=== PATIENT | female | born 1985 | race Hispanic/Latino ===

== ENCOUNTER 2017-10-07 09:57 | Emergency (ER) | payer BC, SELFPAY ==
[2017-10-07] MEDS ORDERED: NA CHLORIDE 0.9% 2,000 ML ONE (12:09)
[2017-10-07 12:24] LABS: Urine Bacteria >50 /HPF (<20)
[2017-10-07 12:25] LABS: Urine Culture Reflex Order NOT NEEDED; Urine Mucus 4+ /HPF (NONE SEEN)
[2017-10-07 12:27] LABS: Urine Blood TRACE (NEG); Urine Glucose NEGATIVE (NEG); Urine Protein NEGATIVE (NEG); Urine Specific Gravity 1.025 (1.005-1.030); Urine pH 5.5 (5.0-7.0)
[2017-10-07 12:36] LABS: Absolute Monocytes 0.4 K/uL (0.1-1.3); Absolute Neutrophil 4.1 K/uL (1.8-8.0); Basophils % 0.4 % (0-1.3); Lymphocytes % 17.7 % (15.3-44.8); MCH 30.7 pg (27.0-35.0); MCV 90.4 fL (80-100); MPV 9.3 fL (7.6-11.3); Monocytes % 7.2 % (3.3-12.3)
[2017-10-07] MEDS ORDERED: ONDANSETRON 4 MG/2 ML VIAL ONE (12:45)
[2017-10-07 12:47] LABS: Glucose Level 86 mg/dL (65-120); Lipase 17 U/L (22-51)
[2017-10-07 12:53] LABS: Albumin 4.3 g/dL (3.2-5.5); Alkaline Phosphatase 60 IU/L (42-121); BUN Blood Urea Nitrogen 14 mg/dL (6-20); Bilirubin Direct 0.2 mg/dL (0-0.2); Bilirubin Total 0.8 mg/dL (0.3-1.2); Protein, Total 7.4 g/dL (6.0-8.3)
[2017-10-07 12:55] LABS: ALT/SGPT 17 IU/L (10-60); AST/SGOT 22 IU/L (10-42); Bicarbonate 26 mEq/L (21-31); Sodium Level 134 mEq/L (135-145)
[2017-10-07] MEDS ORDERED: CEFTRIAXONE/SWI 1gm 1 GM/10 ML SYR ONE (13:03)
--- NOTE | 2017-10-07 14:05 | EDPHYS ---
Physician Documentation [facility] Name: Cecilia Metcalf Age: 32 yrs Sex: Female : 1985 Arrival Date: 10/07/2017 Time: 10:02 Bed 20 Private MD: ED Physician Jim Krishnamurthy HPI: 10/07 12:03 This 32 yrs old Female presents to ER via Ambulatory with complaints of snw Nausea/Vomiting/Diarrhea. 12:03 Onset: The symptoms/episode began/occurred suddenly, 5 day(s) ago, and became worse and snw became persistent. Possible causes: antibiotics. Associated signs and symptoms: Pertinent positives: anorexia, nausea, low grade fever x 2 days. Severity of symptoms: At their worst the symptoms were moderate severe. The patient has not experienced similar symptoms in the past. The patient has not recently seen a physician, the patient's primary care provider is Dr. Dr. Adams. SKIN TANNER: 10:15 LMP N/A - control method hj Historical: - Allergies: 10:15 No Known Allergies; hj - Home Meds: 10:15 None [Active]; hj - PMHx: 10:15 None; hj - PSHx: 10:15 ; hj - Immunization history:: Adult Immunizations up to date. - Social history:: Smoking status: Patient/guardian denies using tobacco. ROS: 12:03 Constitutional: Negative for fever, chills, and weight loss, Eyes: Negative for injury, snw pain, redness, and discharge, ENT: Negative for injury, pain, and discharge, Neck: Negative for injury, pain, and swelling, Cardiovascular: Negative for chest pain, palpitations, and edema, Respiratory: Negative for shortness of breath, cough, wheezing, and pleuritic chest pain, Back: Negative for injury and pain, : Negative for injury, bleeding, discharge, and swelling, MS/Extremity: Negative for injury and deformity, Skin: Negative for injury, rash, and discoloration, Neuro: Negative for headache, weakness, numbness, tingling, and seizure. 12:03 Abdomen/GI: Positive for abdominal pain, nausea, vomiting, and diarrhea. Exam: 12:03 Constitutional: This is a well developed, well nourished patient who is awake, alert, snw and in no acute distress. Head/Face: Normocephalic, atraumatic. Eyes: Pupils equal round and reactive to light, extra-ocular motions intact. Lids and lashes normal. Conjunctiva and sclera are non-icteric and not injected. Cornea within normal limits. Periorbital areas with no swelling, redness, or edema. ENT: Nares patent. No nasal discharge, no septal abnormalities noted. Tympanic membranes are normal and external auditory canals are clear. Oropharynx with no redness, swelling, or masses, exudates, or evidence of obstruction, uvula midline. Mucous membranes moist. Neck: Trachea midline, no thyromegaly or masses palpated, and no cervical lymphadenopathy. Supple, full range of motion without nuchal rigidity, or vertebral point tenderness. No Meningismus. Chest/axilla: Normal chest wall appearance and motion. Nontender with no deformity. No lesions are appreciated. Cardiovascular: Regular rate and rhythm with a normal S1 and S2. No gallops, murmurs, or rubs. Normal PMI, no JVD. No pulse deficits. Respiratory: Lungs have equal breath sounds bilaterally, clear to auscultation and percussion. No rales, rhonchi or wheezes noted. No increased work of breathing, no retractions or nasal flaring. Abdomen/GI: Soft, non-tender, with normal bowel sounds. No distension or tympany. No guarding or rebound. No evidence of tenderness throughout. Back: No spinal tenderness. No costovertebral tenderness. Full range of motion. Skin: Warm, dry with normal turgor. Normal color with no rashes, no lesions, and no evidence of cellulitis. MS/ Extremity: Pulses equal, no cyanosis. Neurovascular intact. Full, normal range of motion. Neuro: Awake and alert, GCS 15, oriented to person, place, time, and situation. Cranial nerves II-XII grossly intact. Motor strength 5/5 in all extremities. Sensory grossly intact. Cerebellar exam normal. Normal gait. Vital Signs: 10:15 BP 109 / 63; Pulse 72; Resp 18; Temp 98.8(TE); Pulse Ox 98% on R/A; Weight 63.5 kg; hj Height 5 ft. 3 in. (160.02 cm); Pain 5/10; 12:45 BP 100 / 58; Pulse 63; Resp 17; Pulse Ox 97% on R/A; dh3 13:38 BP 103 / 65; Pulse 65; Resp 15; Pulse Ox 100% on R/A; mh5 15:06 BP 108 / 65; Pulse 68; Resp 18; Pulse Ox 100% on R/A; Pain 0/10; em 10:15 Body Mass Index 24.80 (63.50 kg, 160.02 cm) hj MDM: 11:18 Patient medically screened. snw 14:04 Data reviewed: vital signs, nurses notes. snw 14:05 Data interpreted: Pulse oximetry: on room air is 100 %. Interpretation: normal. snw Counseling: I had a detailed discussion with the patient and/or guardian regarding: the historical points, exam findings, and any diagnostic results supporting the discharge/admit diagnosis, lab results, the need for outpatient follow up, to return to the emergency department if symptoms worsen or persist or if there are any questions or concerns that arise at home. Special discussion: Based on the patient's Hx, exam, and Dx evaluation, there is no indication for emergent surgery or inpatient Tx. It is understood by the patient/guardian that if the Sx's persist or worsen they need to return immediately for re-evaluation. Based on the history and exam findings, there is no indication for further emergent testing or inpatient evaluation. I discussed with the patient/guardian the need to see the primary care provider for further evaluation of the symptoms. 10/07 11:10 Order name: Urine Culture [facility] 10/07 11:10 Order name: Urine Microscopic Only [facility] 10/07 11:11 Order name: Urine Culture [facility] 10/07 11:11 Order name: Urine Microscopic Only; Complete Time: 12:26 [facility] 10/07 11:47 Order name: Urine Dipstick--Ancillary (enter results); Complete Time: 12:28 [facility] 10/07 11:47 Order name: Urine --Ancillary (enter results); Complete Time: 12:28 [facility] 10/07 11:10 Order name: Urine Test (obtain specimen); Complete Time: 11:43 [facility] 10/07 12:03 Order name: Basic Metabolic Panel; Complete Time: 12:56 [facility] 10/07 12:03 Order name: CBC with Diff; Complete Time: 12:40 [facility] 10/07 12:03 Order name: Hepatic Function; Complete Time: 12:56 [facility] 10/07 12:03 Order name: Lipase; Complete Time: 12:56 snw 10/07 11:10 Order name: Urine Dipstick-Ancillary (obtain specimen); Complete Time: 11:43 snw 10/07 12:03 Order name: IV Saline Lock; Complete Time: 12:23 snw 10/07 12:03 Order name: Labs collected and sent; Complete Time: 12:23 snw Administered Medications: 12:55 Drug: NS 0.9% 2000 ml Route: IV; Rate: 1 bolus; Site: right antecubital; iw 15:00 Follow up: IV Status: Completed infusion; IV Intake: 2000ml em 12:55 Drug: Zofran 4 mg Route: IVP; Site: right antecubital; iw 14:13 Follow up: Response: No adverse reaction; Nausea is decreased em 13:16 Drug: Rocephin 1 grams Route: IV; Rate: calculated rate; Site: right antecubital; iw 14:13 Follow up: Response: No adverse reaction; IV Status: Completed infusion em Disposition: 10/07/17 14:04 Discharged to Home. Impression: Urinary tract infection, site not specified, Vomiting, unspecified, Diarrhea, unspecified, Volume depletion. - Condition is Stable. - Discharge Instructions: Food Choices to Help Relieve Diarrhea, Adult, Diarrhea, Nausea and Vomiting, Urinary Tract Infection, Rehydration, Adult. - Prescriptions for Zofran 4 mg Oral Tablet - take 1 tablet by ORAL route every 12 hours As needed; 6 tablet. Macrobid 100 mg Oral Capsule - take 1 capsule by ORAL route every 12 hours for 10 days; 20 capsule. Bactrim DS 800- 160 mg Oral Tablet - take 1 tablet by ORAL route every 12 hours for 10 days; 20 tablet. - Medication Reconciliation Form, Thank You Letter, Antibiotic Education, Prescription Opioid Use form. - Follow up: Private Physician; When: 2 - 3 days; Reason: Recheck today's complaints, Continuance of care, Re-evaluation by your physician. Follow up: Emergency Department; When: As needed; Reason: Worsening of condition. Addendum: 10/10/2017 06:13 Co-signature as Attending Physician, Jim Krishnamurthy MD Available for consultation at p s1 all times. . Signatures: Dispatcher [employer] EDKate Collins, [facility] Rohit Cobian, ACADEMIC PROGRAM SPECIALIST ACADEMIC PROGRAM SPECIALIST Lida Bridges, RN RN Matt Masterson RN RN Jim Hanson MD MD ps1
--- NOTE | 2017-10-07 14:05 | ER ---
Nurse's Notes [facility] Name: Cecilia Metcalf Age: 32 yrs Sex: Female : 1985 Arrival Date: 10/07/2017 Time: 10:02 Bed 20 Private MD: Diagnosis: Urinary tract infection, site not specified;Vomiting, unspecified;Diarrhea, unspecified;Volume depletion Presentation: 10/07 10:13 Presenting complaint: Patient states: abdominal pain on my lower abd, nausea, vomiting hj and diarrhea that started last Thursday, reports fever;. Transition of care: patient was not received from another setting of care. Onset of symptoms was October 07, 2017. Initial Sepsis Screen:. Care prior to arrival: None. 10:13 Method Of Arrival: Ambulatory 10:13 Acuity: CAROL 3 12:24 Initial Sepsis Screen: Does the patient meet any 2 criteria? No. Patient's initial em sepsis screen is negative. Does the patient have a suspected source of infection? No. Patient's initial sepsis screen is negative. Triage Assessment: 10:15 General: Appears in no apparent distress. uncomfortable, Behavior is calm, cooperative, hj appropriate for age. Pain: Complains of pain in right lower quadrant and left lower quadrant Pain currently is 5 out of 10 on a pain scale. GI: Reports lower abdominal pain, diarrhea, nausea, vomiting. SHUTTLE SPOTTER: 10:15 LMP N/A - control method hj Historical: - Allergies: 10:15 No Known Allergies; hj - Home Meds: 10:15 None [Active]; hj - PMHx: 10:15 None; hj - PSHx: 10:15 ; hj - Immunization history:: Adult Immunizations up to date. - Social history:: Smoking status: Patient/guardian denies using tobacco. Screenin:04 Abuse screen: Denies threats or abuse. Nutritional screening: No deficits noted. em Tuberculosis screening: No symptoms or risk factors identified. Fall Risk None identified. Assessment: 10:15 GI: Abdomen is non-distended. hj 11:44 General: Appears in no apparent distress. comfortable, Behavior is calm, cooperative, em Reports fever for 12-24 hours, reports N/V/D for 4 days. Pain: Complains of pain in abdomen Pain does not radiate. Pain currently is 7 out of 10 on a pain scale. Pain began 4 days ago. Neuro: Level of Consciousness is awake, alert, obeys commands, Oriented to person, place, time, situation. Cardiovascular: Capillary refill < 3 seconds Patient's skin is warm and dry. Respiratory: Airway is patent Respiratory effort is even, unlabored, Respiratory pattern is regular, symmetrical. GI: Abdomen is flat, Bowel sounds present X 4 quads. Abd is soft X 4 quads Abdomen is tender to palpation in right lower quadrant and left lower quadrant Reports diarrhea, nausea, vomiting. : No signs and/or symptoms were reported regarding the genitourinary system. EENT: No signs and/or symptoms were reported regarding the EENT system. Derm: Skin is intact, Skin is pink, warm \T\ dry. Musculoskeletal: Range of motion: intact in all extremities. 12:00 Reassessment: Patient appears in no apparent distress at this time. I agree with the iw above assessment by Rohit Cobian LVN. 12:24 Reassessment: Patient appears in no apparent distress at this time. Patient and/or em family updated on plan of care and expected duration. Pain level reassessed. Patient is alert, oriented x 3, equal unlabored respirations, skin warm/dry/pink. Patient states feeling better. 13:39 Reassessment: Patient appears in no apparent distress at this time. Patient and/or em family updated on plan of care and expected duration. Pain level reassessed. Patient is alert, oriented x 3, equal unlabored respirations, skin warm/dry/pink. Patient states feeling better. Patient states symptoms have improved. 14:15 Reassessment: Patient appears in no apparent distress at this time. Patient and/or em family updated on plan of care and expected duration. Pain level reassessed. Patient is alert, oriented x 3, equal unlabored respirations, skin warm/dry/pink. pt up for discharge, awaiting NS bolus to complete. 15:06 Reassessment: Patient appears in no apparent distress at this time. Patient and/or em family updated on plan of care and expected duration. Pain level reassessed. Patient is alert, oriented x 3, equal unlabored respirations, skin warm/dry/pink. Patient denies pain at this time. Patient states feeling better. Patient states symptoms have improved. Vital Signs: 10:15 BP 109 / 63; Pulse 72; Resp 18; Temp 98.8(TE); Pulse Ox 98% on R/A; Weight 63.5 kg; hj Height 5 ft. 3 in. (160.02 cm); Pain 5/10; 12:45 BP 100 / 58; Pulse 63; Resp 17; Pulse Ox 97% on R/A; dh3 13:38 BP 103 / 65; Pulse 65; Resp 15; Pulse Ox 100% on R/A; mh5 15:06 BP 108 / 65; Pulse 68; Resp 18; Pulse Ox 100% on R/A; Pain 0/10; em 10:15 Body Mass Index 24.80 (63.50 kg, 160.02 cm) ED Course: 10:02 Patient arrived in ED. mr 10:14 Triage completed. hj 10:15 Arm band placed on left wrist. hj 11:18 Kate Wood FNP-C is PHCP. snw 11:18 Jim Krishnamurthy MD is Attending Physician. snw 11:23 Rohit Cobian LVN is Primary Nurse. em 11:46 Urine collected: clean catch specimen, clear. dh3 12:04 Patient has correct armband on for positive identification. Placed in gown. Bed in low em position. Call light in reach. Side rails up X2. 12:23 Initial lab(s) drawn, by me, sent to lab. Inserted saline lock: 20 gauge in right dh3 antecubital area, using aseptic technique. Blood collected. 12:24 No provider procedures requiring assistance completed. em 15:07 IV discontinued, intact, bleeding controlled, No redness/swelling at site. Pressure em dressing applied. Administered Medications: 12:55 Drug: NS 0.9% 2000 ml Route: IV; Rate: 1 bolus; Site: right antecubital; iw 15:00 Follow up: IV Status: Completed infusion; IV Intake: 2000ml em 12:55 Drug: Zofran 4 mg Route: IVP; Site: right antecubital; iw 14:13 Follow up: Response: No adverse reaction; Nausea is decreased em 13:16 Drug: Rocephin 1 grams Route: IV; Rate: calculated rate; Site: right antecubital; iw 14:13 Follow up: Response: No adverse reaction; IV Status: Completed infusion em Intake: 15:00 IV: 2000ml; Total: 2000ml. em Outcome: 14:04 Discharge ordered by MD. gil 15:07 Discharged to home ambulatory. em 15:07 Condition: good 15:07 Discharge instructions given to patient, Instructed on discharge instructions, follow up and referral plans. medication usage, Demonstrated understanding of instructions, follow-up care, medications, Prescriptions given X 3. 15:09 Patient left the ED. em Signatures: Kate Wood, EQUINE SCIENCE INSTRUCTOR-C [employer] SCI[employer] IN[employer]-Csnw Meredith Bull, Rohit, PLATER SUPERVISOR PLATER SUPERVISOR em Lida Arias, HOMERO RN Matt Masterson, Meredith Davis RN [facility] Blanca Gregory [facility]
[2017-10-07 15:22] VITALS: TEMP 98.8
[2017-10-07 15:24] VITALS: O2SAT 100
[2017-10-07 15:25] VITALS: BP 108/65
== END 2017-10-07 15:09 | disposition home or self-care (01) ==
LOC: ER 09:57
DX: N39.0 Urinary tract infection, site not specified (principal); E86.9 Volume depletion, unspecified; R19.7 Diarrhea, unspecified
CPT/HCPCS: 36415; 80048; 80076; 81003; 81015; 81025; 83690; 85025; 87086; 87088; 96361; 96365; 96375; 99284; J0696; J2405; J7030